=== PATIENT | female | born 1990 | race Two or more races ===

== ENCOUNTER 2024-06-26 12:22 | Emergency (ER) | payer MEDICAID, SELFPAY ==
[2024-06-26 12:23] VITALS: BMI 48.2
--- NOTE | 2024-06-26 12:49 | EDNOTE_ITS ---
ED General RME/HPI General Chief complaint: Headache Stated complaint: Migraine since last night 03/10. [place] Time Seen by Provider: 06/26/24 12:47 Arrival date/time: 06/26/24 12:22 CC headache with light sensitivity noise sensitivity no nausea or vomiting HPI onset last night, ibuprofen taken at 7 AM without any relief. Last time patient had a headache like this was when she was 15 years old. Last menstrual cycle was 5 days ago patient states she has been fixed . Related Data Home Medications ?Medication ?Instructions ?Recorded ?Confirmed gabapentin 100 mg capsule 100 mg PO TID 10/30/18 10/30/18 hydrocodone 5 mg-acetaminophen 325 1 tab PO Q6H 10/30/18 10/30/18 mg tablet ([place]) sulfamethoxazole 800 1 tab PO BID 10/30/18 10/30/18 mg-trimethoprim 160 mg tablet Previous Rx's ?Medication ?Instructions ?Recorded dicyclomine 20 mg tablet 20 mg PO Q8HR PRN Abdominal cramps 10/30/18 #10 tabs sumatriptan 5 mg/actuation nasal 20 mg intranasal Q2H PRN migraine 06/26/24 spray headache #1 ea Allergies Allergy/AdvReac Type Severity Reaction Status Date / Time No Known Allergies Allergy Verified 10/30/18 03:20 Review of Systems Review of Systems Narrative Review of Systems: GEN: No fever, no chills, no weight loss EYES: No discharge, no visual changes, no pain HEENT: No ear pain, no congestion, no sore throat PULM: No shortness of breath, no cough, no congestion CV: No chest pain, no dyspnea on exertion, no palpitations GI: No nausea, no vomiting, no diarrhea, no pain, no constipation : No frequency, no urgency, no dysuria MUSC/SKEL: No joint pain, no back pain SKIN: No rash PSYCH: No hallucinations, no depression HEME/LYMPH: No easy bleeding or bruising tendencies NEURO: No weakness, + headache Past Medical History Past Medical History NEUROLOGIC: Negative Neurological Disorders or Seizures CARDIAC: Negative Cardiac Disorders or Congestive Heart Failure RESPIRATORY: Negative Chronic Obstructive Pulmonary Disease (COPD) or Asthma GASTROINTESTINAL: Negative Gastrointestinal Disorders, Hepatitis or Colorectal Cancer GENITOURINARY: Negative Genitourinary Disorders, Renal Disease or Prostate Cancer REPRODUCTIVE: Positive Previous Pregnancies; Negative Breast Cancer, Pelvic Inflammatory Disease or Testicular Cancer MUSCULOSKELETAL: Negative Musculoskeletal Disorders or Bone Cancer ENDOCRINE: Negative Endocrine Disorders, Diabetes Mellitus Type 1 or Diabetes Mellitus Type 2 HEMATOLOGIC: Negative Blood Disorders, Anemia or Sickle Cell Disease OTHER HISTORY: Negative Hospitalization, Autoimmune Disease, Down Syndrome, Developmental Delay, Shingles, Falls, Blood Transfusions, Blood Transfusion Reaction, Anesthesia Reactions, Organ Transplant, Chemotherapy, Radiation Therapy, Hyperbaric Therapy, MRSA, VRSA, Vancomycin-Resistant Enterococci, Human Immunodeficiency Virus (HIV), Chicken Pox, Measles, Mumps, Rubella (Czech Measles), Pertussis, Clostridium Difficile, Breast Cancer, Cervical Cancer, Colorectal Cancer, Lung Cancer, Ovarian Cancer, Prostate Cancer or Testicular Cancer Family History FAMILY HISTORY: Negative Family Psychiatric Problems, Family Respiratory Disorders, Family Cardiac Disorders, Family Gastrointestinal Problems, Family Cancer, Family Surgery or Family Anesthesia Reaction Surgical History SURGICAL: Positive Section; Negative Organ Transplant Social History SMOKING STATUS: Never smoker SUBSTANCE USE: does not use ED Exam Narrative Physical exam: [General: Morbidly obese in mild discomfort but not in any acute distress Head normocephalic HEENT: Eyes: Pupils are PERRLA EOMs are intact all other subsystems of HEENT are within acceptable limits Neck is supple nontender Chest equal chest rise nontender to palpation Respiratory: Clear to auscultation no wheezes crackles or rubs CV: Rate rhythm is regular no murmurs rubs or clicks Abdomen is grossly distended secondary to body habitus soft nontender no masses positive bowel sounds all 4 quadrants Back: No CVA tenderness no spinous process tenderness from cervical spine thoracic and lumbar spine Skin: Intact no petechiae rash induration ulceration or crepitus Extremities: Moving all extremities against resistance cap refill less than 2 seconds neurosensory intact Neuro: Awake alert oriented x3 Glascow coma 15 no focal deficits] Course Course Course Narrative: Significant proved and a headache is down to a 5 out of 10 scale the photosensitivity noise sensitivity and nausea resolved. Quality Measures none Orders Category Date Time Status DiphenhydrAMINE INJ [Benadryl Inj] Med 06/26/24 12:48 Discontinued 50 mg IM X1 ONE Ketorolac Inj [Toradol Inj] Med 06/26/24 12:48 Discontinued 30 mg IM X1 ONE Prochlorperazine Inj [Compazine Inj] Med 06/26/24 12:48 Discontinued 10 mg IM X1 ONE Vital Signs Vital signs: Vital Signs Temperature 99.1 F 06/26/24 12:54 Pulse Rate 100 06/26/24 12:54 Respiratory Rate 18 06/26/24 12:54 Blood Pressure 137/91 H 06/26/24 12:54 Pulse Oximetry (%) 96 06/26/24 12:54 Oxygen Delivery Method Room Air 06/26/24 12:54 MDM Patient data External records reviewed:: [facility] previous records Clinical information provided by:: patient Social determinants that could affect healthcare access:: none Patient has the following chronic illnesses:: Morbid obesity How is presenting disease/condition affected by chronic disease/condition?: u neffected by Evaluation data The following diagnostics were reviewed and interpreted by me:: other (specify) (None) Lab and/or radiology exams considered but not ordered:: None Interpretation Summary: Classic migraine Medications Medications considered but not ordered:: None Medication administrations:: Medication Administration History Discontinued Medications Diphenhydramine HCl (Diphenhydramine Inj 50 Mg/Ml Vial) 50 mg IM X1 ONE Stop: 06/26/24 12:49 Last Admin: 06/26/24 13:07 Dose: 50 mg Documented By: TAMARA Ketorolac Tromethamine (Ketorolac Inj 60 Mg/2 Ml Vial) 30 mg IM X1 ONE Stop: 06/26/24 12:49 Last Admin: 06/26/24 13:06 Dose: 30 mg Documented By: TAMARA Prochlorperazine Edisylate (Prochlorperazine Inj 5 Mg/Ml Vial 2 Ml) 10 mg IM X1 ONE; Protocol Stop: 06/26/24 12:49 Last Admin: 06/26/24 13:23 Dose: 10 mg Documented By: TAMARA None Consultations Consultation(s) initiated? (list below): No Diagnosis Differential Diagnosis ED Complaint MDM: Tension headache classic migraine complex migraine Most likely diagnosis given after review of the tests above:: Classic migraine Admission Indicated Admission indicated?: not indicated Explain why admission is indicated or not indicated:: Stable for outpatient follow-up Admission Request Was there a request for admission?: No Disposition Plan Disposition Plan: Discharge Discharge Attestation Discharge Attestation: The patient and all family members were given an opportunity to ask questions and understood the discharge instructions. Discharge instructions specifically effects, indications for sooner follow up or return to the emergency department, and the expected course of current diagnosis. Patient condition: Stable Medical Decision Making Differential Diagnosis Differential Diagnosis: Tension headache classic migraine complex migraine Discharge Plan Plan Patient Disposition: HOME (Self Care) Patient condition on transfer: Stable Prescriptions/Referrals Prescriptions/Med Rec: New sumatriptan 5 mg/actuation spray,non-aerosol 20 mg intranasal Q2H PRN (Reason: migraine headache) Qty: 1 0RF Rx Instructions: administer into one nostril as a single dose; if 2nd dose needed,administer into other nostril after at least 2 hrs, NTE 2 doses (40 mg) per episode No Action hydrocodone-acetaminophen [[place]] 5-325 mg Tablet 1 tab PO Q6H sulfamethoxazole-trimethoprim 800-160 mg Tablet 1 tab PO BID gabapentin 100 mg Capsule 100 mg PO TID dicyclomine 20 mg tablet 20 mg PO Q8HR PRN (Reason: Abdominal cramps) Qty: 10 0RF Problem List Clinical Impression: Migraine Patient/Caregiver Discharge Instructions Education Materials: ED Headache, Migraine, Classic Print Language: [place] Stand Alone Forms: [facility] Award Info., Patient Portal Info Letter, Work/School Release PA/HONING MACHINE OPERATOR SEMIAUTOMATIC Supervising Physician PA/HONING MACHINE OPERATOR SEMIAUTOMATIC Supervising Physician: Allen Charles ENP
[2024-06-26 12:54] VITALS: BP 137/91; PULSE 100; RESP 18; TEMP 37.3; O2SAT 96; BMI 48.2
[2024-06-26] MEDS: KETOROLAC INJ 60 MG/2 ML VIAL 30 MG IM (13:06)
[2024-06-26] MEDS: DiphenhydrAMINE INJ 50 MG/ML VIAL IM (13:07)
[2024-06-26] MEDS: PROCHLORPERAZINE INJ 5 MG/ML VIAL 2 ML 10 MG IM (13:23)
== END 2024-06-26 15:00 | disposition home or self-care (01) ==
LOC: SERX 14:44
PROVIDERS: Emergency Provider Emergency Medicine; PCP Family Medicine
DX: G43.909 Migraine, unspecified, not intractable, without status migrainosus (principal)
CPT/HCPCS: 96372; 99283; J0780; J1200; J1885

== ENCOUNTER 2024-10-07 08:43 | Emergency (ER) | payer MEDICAID, SELFPAY ==
[2024-10-07 08:53] VITALS: BMI 47.0
[2024-10-07 08:58] VITALS: BP 138/95; PULSE 62; RESP 18; TEMP 36.7; O2SAT 95
--- NOTE | 2024-10-07 09:01 | PD.EDFALL ---
ED Fall Injury RME/HPI General Chief Complaint: Fall Stated Complaint: fall Time Seen by Provider: 10/07/24 08:57 Source: patient Arrival date/time: 10/07/24 08:43 34-year-old female with no known medical history presents to the emergency room with a chief complaint of tenderness and pain to her wrist elbow and forearm after a ground-level fall that occurred 30 minutes ago. Mode of arrival: ambulatory Limitations: no limitations Related Data Home Medications ?Medication ?Instructions ?Recorded ?Confirmed gabapentin 100 mg capsule 100 mg PO TID 10/30/18 10/30/18 hydrocodone 5 mg-acetaminophen 325 1 tab PO Q6H 10/30/18 10/30/18 mg tablet ([place]) sulfamethoxazole 800 1 tab PO BID 10/30/18 10/30/18 mg-trimethoprim 160 mg tablet Previous Rx's ?Medication ?Instructions ?Recorded dicyclomine 20 mg tablet 20 mg PO Q8HR PRN Abdominal cramps 10/30/18 #10 tabs sumatriptan 5 mg/actuation nasal 20 mg intranasal Q2H PRN migraine 06/26/24 spray headache #1 ea Allergies Allergy/AdvReac Type Severity Reaction Status Date / Time No Known Allergies Allergy Verified 10/07/24 08:46 Review of Systems Review of Systems Systems Reviewed: All systems reviewed, normal except as documented Constitutional Constitutional: Reports system reviewed and no additional complaints, except as documented, Denies fatigue, Denies fever(s), Denies headache(s) and Denies weakness Eyes Eyes: Reports system reviewed and no additional complaints, except as documented, Denies blurry vision and Denies change in vision ENT Ears, Nose, Mouth, and Throat: Reports system reviewed and no additional complaints, except as documented, Denies otalgia, Denies headache(s), Denies nasal congestion, Denies throat swelling and Denies vertigo Cardiovascular Cardiovascular: Reports system reviewed and no additional complaints, except as documented, Denies chest pain, Denies dyspnea and Denies dyspnea on exertion Respiratory Respiratory: Reports system reviewed and no additional complaints, except as documented, Denies chest congestion, Denies cough, Denies dyspnea, Denies dyspnea on exertion and Denies wheezing Gastrointestinal Gastrointestinal: Reports system reviewed and no additional complaints, except as documented, Denies abdominal pain, Denies cramping, Denies nausea and Denies vomiting Genitourinary Genitourinary: Reports system reviewed and no additional complaints, except as documented Musculoskeletal Musculoskeletal: Reports system reviewed and no additional complaints, except as documented, Reports arthralgias, Denies back pain and Reports joint swelling Integumentary/Breasts Skin/Breast: Reports system reviewed and no additional complaints, except as documented and Denies wounds Neurologic Neurologic: Reports system reviewed and no additional complaints, except as documented, Denies confusion, Denies headache(s), Denies lack of coordination, Denies vertigo and Denies weakness Psychiatric Psychiatric: Reports system reviewed and no additional complaints, except as documented, Denies anxiety, Denies confusion, Denies depression, Denies paranoia, Denies suicidal ideation and Denies tactile hallucinations Endocrine Endocrine: Reports system reviewed and no additional complaints, except as documented and Denies fatigue Hematologic/Lymphatic Hematologic/Lymphatic: Reports system reviewed and no additional complaints, except as documented and Denies lymphadenopathy Allergic/Immunologic Allergic/Immunologic: Reports system reviewed and no additional complaints, except as documented, Denies throat swelling, Denies urticaria and Denies wheezing Past Medical History Past Medical History NEUROLOGIC: Negative Neurological Disorders or Seizures CARDIAC: Negative Cardiac Disorders or Congestive Heart Failure RESPIRATORY: Negative Chronic Obstructive Pulmonary Disease (COPD) or Asthma GASTROINTESTINAL: Negative Gastrointestinal Disorders, Hepatitis or Colorectal Cancer GENITOURINARY: Negative Genitourinary Disorders, Renal Disease or Prostate Cancer REPRODUCTIVE: Positive Previous Pregnancies; Negative Breast Cancer, Pelvic Inflammatory Disease or Testicular Cancer MUSCULOSKELETAL: Negative Musculoskeletal Disorders or Bone Cancer ENDOCRINE: Negative Endocrine Disorders, Diabetes Mellitus Type 1 or Diabetes Mellitus Type 2 HEMATOLOGIC: Negative Blood Disorders, Anemia or Sickle Cell Disease OTHER HISTORY: Negative Hospitalization, Autoimmune Disease, Down Syndrome, Developmental Delay, Shingles, Falls, Blood Transfusions, Blood Transfusion Reaction, Anesthesia Reactions, Organ Transplant, Chemotherapy, Radiation Therapy, Hyperbaric Therapy, MRSA, VRSA, Vancomycin-Resistant Enterococci, Human Immunodeficiency Virus (HIV), Chicken Pox, Measles, Mumps, Rubella ([place] Measles), Pertussis, Clostridium Difficile, Breast Cancer, Cervical Cancer, Colorectal Cancer, Lung Cancer, Ovarian Cancer, Prostate Cancer or Testicular Cancer Family History FAMILY HISTORY: Negative Family Psychiatric Problems, Family Respiratory Disorders, Family Cardiac Disorders, Family Gastrointestinal Problems, Family Cancer, Family Surgery or Family Anesthesia Reaction Surgical History SURGICAL: Positive Section; Negative Organ Transplant Social History SMOKING STATUS: Never smoker SUBSTANCE USE: does not use ED Exam General Limitations: Present no limitations General appearance: Present alert and in no apparent distress Head Head exam: Present atraumatic Eye Eye exam: Present normal appearance, PERRL and EOMI ENT ENT exam: Present normal exam, normal oropharynx and mucous membranes moist Neck Neck exam: Present normal inspection, full ROM and trachea midline Chest Chest inspection: Present normal inspection and symmetric chest wall rise Respiratory Respiratory exam: Present normal lung sounds bilaterally Cardiovascular Cardiovascular exam: Present regular rate, normal rhythm and normal heart sounds Abdominal Exam Abdominal exam: Present soft and normal bowel sounds Extremities Exam Extremities exam: Present normal inspection and full ROM Expanded Upper Extremity Exam Shoulder exam: Present normal inspection Arm exam: Present normal inspection Elbow exam: Present tenderness Forearm/Wrist exam: Present tenderness Hand exam: Present normal inspection Back Exam Back exam: Present normal inspection and full ROM Neurological Exam Neurological exam: Present alert, oriented X3 and CN II-XII intact Psychiatric Psychiatric exam: Present normal affect and normal mood Skin Skin exam: Present warm, dry, intact and normal color Course Quality Measures none Orders Category Date Time Status XR elbow comp RT min 3V Stat Exams 10/07/24 09:01 Completed XR forearm RT 2V Stat Exams 10/07/24 09:01 Completed XR wrist comp RT min 3V Stat Exams 10/07/24 09:01 Completed Vital Signs Vital signs: Vital Signs Temperature 98.1 F 10/07/24 08:58 Pulse Rate 62 10/07/24 08:58 Respiratory Rate 18 10/07/24 08:58 Blood Pressure 138/95 H 10/07/24 08:58 Pulse Oximetry (%) 95 10/07/24 08:58 Oxygen Delivery Method Room Air 10/07/24 08:58 O2 saturation 95% within normal limits Fall [facility] Narrative MDM Narrative:: 34-year-old female with no known medical history presents to the emergency room with a chief complaint of tenderness and pain to her wrist elbow and forearm after a ground-level fall that occurred 30 minutes ago. Patient is hemodynamically stable and in no apparent distress Physical examination shows tenderness and pain to the patient's elbow and wrist after ground-level fall. X-rays were completed and were negative for any acute fractures or dislocations Patient was discharged and educated to follow-up with primary care provider in the next 24 to 48 hours and return to the emergency room for any evidence of worsening signs or symptoms Patient data External records reviewed:: [facility] previous records Clinical information provided by:: patient Social determinants that could affect healthcare access:: none Patient has the following chronic illnesses:: No chronic illness How is presenting disease/condition affected by chronic disease/condition?: no chronic disease Evaluation data The following diagnostics were reviewed and interpreted by me:: lab results and radiology exam(s) Lab and/or radiology exams considered but not ordered:: Labs and radiology exams considered and ordered Interpretation Summary: X-ray wrist-FINDINGS: No fracture or dislocation. No foreign body IMPRESSION: No fracture or dislocation X-ray forearm-FINDINGS: No fracture or dislocation. No foreign body IMPRESSION: Negative examination Medications / Prescriptions Medications or Prescriptions considered but not ordered:: No medication given Medication administrations:: No medication given Consultations Consultation(s) initiated? (list below): No Diagnosis Fall Differential Diagnosis: fracture of wrist and other (Arm pain/elbow fracture/wrist sprain/upper extremity sprain) Most likely diagnosis given after review of the tests above:: Upper extremity sprain Admission Indicated Admission indicated?: not indicated Admission Request Was there a request for admission?: No Disposition Plan Disposition Plan: Discharge Discharge Attestation Discharge Attestation: The patient and all family members were given an opportunity to ask questions and understood the discharge instructions. Discharge instructions specifically effects, indications for sooner follow up or return to the emergency department, and the expected course of current diagnosis. Patient condition: Stable Discharge Plan Plan Patient Disposition: HOME (Self Care) Discharge Disposition comment: Stable Prescriptions/Referrals Prescriptions/Med Rec: No Action hydrocodone-acetaminophen [[place]] 5-325 mg Tablet 1 tab PO Q6H sulfamethoxazole-trimethoprim 800-160 mg Tablet 1 tab PO BID gabapentin 100 mg Capsule 100 mg PO TID dicyclomine 20 mg tablet 20 mg PO Q8HR PRN (Reason: Abdominal cramps) Qty: 10 0RF sumatriptan 5 mg/actuation spray,non-aerosol 20 mg intranasal Q2H PRN (Reason: migraine headache) Qty: 1 0RF Rx Instructions: administer into one nostril as a single dose; if 2nd dose needed,administer into other nostril after at least 2 hrs, NTE 2 doses (40 mg) per episode Problem List Clinical Impression: Sprain of right upper extremity Patient/Caregiver Discharge Instructions Additional Instructions: Please follow-up with your primary care provider in the next 24 to 48 hours. X-rays were completed and were negative for any acute fractures or dislocations of your elbow forearm and wrist. For any evidence of worsening signs or symptoms return emergency room Print Language: [place] Stand Alone Forms: Marilu Award Info., Patient Portal Info Letter PA/COREMAKER PIPE Supervising Physician PA/COREMAKER PIPE Supervising Physician: Dr. Lovell
--- NOTE | 2024-10-07 09:01 | XR_ITS ---
Examination: Wrist, right 3 views Technique: Wrist AP, oblique, lateral 3 views Date and time of exam: October 07, 2024 0927 hours INDICATIONS: Patient fell today with injury to the wrist, wrist pain. FINDINGS: No fracture or dislocation. No foreign body IMPRESSION: No fracture or dislocation
--- NOTE | 2024-10-07 09:01 | XR_ITS ---
Examination: Forearm, right, 2 views. Technique: Forearm, AP, lateral 2 views Date and time of exam: October 07, 2024 0927 hours INDICATIONS: Patient fell today with into the forearm, forearm pain. FINDINGS: No fracture or dislocation. No foreign body IMPRESSION: Negative examination
--- NOTE | 2024-10-07 09:01 | XR_ITS ---
Examination: Right elbow 3 views Technique: Elbow AP, oblique, lateral 3 views Exam date and time: October 07, 2024 0927 hours INDICATIONS: Patient fell today with injury to the elbow, elbow pain. FINDINGS: No fracture or dislocation. No foreign body IMPRESSION: Negative examination.
== END 2024-10-07 10:45 | disposition home or self-care (01) ==
PROVIDERS: Emergency Provider Family Medicine; PCP Family Medicine
DX: S63.501A Unspecified sprain of right wrist, initial encounter (principal); W18.30XA Fall on same level, unspecified, initial encounter; M25.521 Pain in right elbow; M79.631 Pain in right forearm
CPT/HCPCS: 73080; 73090; 73110; 99283

== ENCOUNTER 2024-12-29 23:56 | Emergency (ER) | payer MEDICAID, SELFPAY ==
[2024-12-29 23:57] VITALS: BMI 46.7
[2024-12-30 00:10] VITALS: BP 139/93; PULSE 68; RESP 18; TEMP 36.8; O2SAT 95
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
[2024-12-30] MEDS: KETOROLAC INJ 60 MG/2 ML VIAL IM (00:48)
[2024-12-30] MEDS: METOCLOPRAMIDE 5 MG TABLET 10 MG PO (00:48)
== END 2024-12-30 01:40 | disposition home or self-care (01) ==
PROVIDERS: Emergency Provider Emergency Medicine; PCP Family Medicine
DX: G43.909 Migraine, unspecified, not intractable, without status migrainosus (principal)
CPT/HCPCS: 96372; 99283; J1885; A9270